=== PATIENT | female | born 1955 | race Caucasian/White ===

== ENCOUNTER → 2022-05-22 | Outpatient (CLI) | payer MEDICARE ==
--- NOTE | 2022-05-23 08:40 | MM ---
Reason for Exam: Screening (asymptomatic). Last screening mammogram was performed 12 month(s) ago. Patient History: Menarche at age 13. First Full-Term at age 38. Late child-bearing (after 30). Postmenopausal. Patient has history of breast feeding. Maternal aunt had breast cancer at or over age 50. Sister had breast cancer at or over age 50. Risk Values: Mahnaz 5 year model risk: 3.4%. NCI Lifetime model risk: 11.8%. Prior Study Comparison: 05/18/2020 Bilateral Screening Mammogram, [facility]. 05/19/2021 Bilateral Screening Mammogram, [facility]. Tissue Density: The breast tissue is heterogeneously dense. This may lower the sensitivity of mammography. Findings: Analyzed By CAD. Increasing indeterminate calcifications upper outer left breast. Magnification spot compression views recommended. No evidence for disc and mass within either breast at this time. Overall Assessment: Incomplete: need additional imaging evaluation, BI-RAD 0 Management: Diagnostic Mammogram of the left breast. A clinical breast exam by your physician is recommended on an annual basis and results should be correlated with mammographic findings. Electronically signed and approved by: Tariq Crespo M.D. Radiologis
== END | disposition home or self-care (01) ==
LOC: RADMAMWWP 10:00
PROVIDERS: ATTEND Internal Medicine
DX: Z12.31 Encounter for screening mammogram for malignant neoplasm of breast (principal); Z78.0 Asymptomatic menopausal state; Z80.3 Family history of malignant neoplasm of breast
CPT/HCPCS: 77063; 77067

== ENCOUNTER → 2022-05-25 | Outpatient (CLI) | payer MEDICARE ==
--- NOTE | 2022-05-25 08:14 | MM ---
Reason for Exam: Clinical finding. Last screening mammogram was performed less than 1 month ago. Patient History: Menarche at age 13. First Full-Term at age 38. Late child-bearing (after 30). Postmenopausal. Patient has history of breast feeding. Maternal aunt had breast cancer at or over age 50. Sister had breast cancer at or over age 50. Risk Values: Mahnaz 5 year model risk: 3.4%. NCI Lifetime model risk: 11.8%. Prior Study Comparison: 05/18/2020 Bilateral Screening Mammogram, [facility]. 05/19/2021 Bilateral Screening Mammogram, [facility]. 05/22/2022 Bilateral MG 3D screening mammo w/cad, [facility]. Tissue Density: Left: The breast tissue is heterogeneously dense. This may lower the sensitivity of mammography. Findings: Analyzed By CAD. A large area of amorphous calcifications spans 5 to 6 cm in the upper outer quadrant of the left breast. These appear to have increased from 2020. 2 site biopsy of far anterior and far posterior calcifications from a lateral approach is recommended. Overall Assessment: Suspicious, BI-RAD 4 Management: Stereotactic Core Biopsy of the left breast. 2 site biopsy far posterior and far anterior calcifications. Consider a lateral approach. Results were given to the patient verbally at the time of exam. Electronically signed and approved by: Fito Knutson M.D. Radiologist
== END | disposition home or self-care (01) ==
LOC: RADMAMWWP 07:38
PROVIDERS: ATTEND Internal Medicine
DX: R92.8 Other abnormal and inconclusive findings on diagnostic imaging of breast (principal); Z78.0 Asymptomatic menopausal state; Z80.3 Family history of malignant neoplasm of breast
CPT/HCPCS: 77065; G0279; 77061

== ENCOUNTER → 2022-06-05 | Day surgery (SDC) | payer MEDICARE, OTHER ==
[2022-06-05 07:45] VITALS: RESP 16
[2022-06-05 09:20] VITALS: BP 117/78; PULSE 71; TEMP 98.1
--- NOTE | 2022-06-08 14:26 | MM ---
Risk Values: Mahnaz 5 year model risk: 3.4%. NCI Lifetime model risk: 11.8%. Prior Study Comparison: 05/19/2021 Bilateral Screening Mammogram, [facility]. 05/22/2022 Bilateral MG 3D screening mammo w/cad, [facility]. 05/25/2022 Left MG 3D work up w/cad , [facility]. Pathology Description: Location: upper outer quadrant, middle. Marker Left Behind. Specimen Radiograph. Calcium Found: Yes Approach: CC FA Needle Type: Eviva Cores: 7 Skin Nicks: 1 Gauge: 9 The calcifications in question within the left breast were targeted by the undersigned at 2 sites. Procedure was performed by the undersigned. Informed consent was obtained and all of the patients questions were answered. The standard sterile technique was utilized and appropriate local anesthesia was obtained with 1% lidocaine. Mammotome probe was advanced and multiple core samples were obtained and sent to pathology for interpretation at both sites. Microclip marker was deployed at both sites of biopsy. Post procedural mammogram demonstrates appropriate deployment of radiopaque clip markers. The patient tolerated the procedure well and left the department in stable condition. Pathology results are pending. Impression: Successful two site core biopsy of the left breast with pathology results pending. Pathology Results: Result: Benign, Fibrocystic change. A. LEFT BREAST, SITE A, STEREOTACTIC NEEDLE CORE BIOPSY: Fibrocystic changes including sclerosing adenosis with calcifications. B. LEFT BREAST, SITE B, STEREOTACTIC NEEDLE CORE BIOPSY: Fibrocystic changes including sclerosing adenosis with calcifications. Pathology Description: Location: upper outer quadrant, posterior. Marker Left Behind. Specimen Radiograph. Calcium Found: Yes Approach: CC FA Needle Type: Eviva Cores: 8 Skin Nicks: 1 Gauge: 9 Overall Assessment: Benign Management: Diagnostic Mammogram of the left breast in 6 months. Electronically signed and approved by: Tariq Crespo M.D. Radiologis
== END ==
LOC: RADMAMWWP 07:29
PROVIDERS: ATTEND Internal Medicine
DX: N60.12 Diffuse cystic mastopathy of left breast (principal); N60.22 Fibroadenosis of left breast; R92.8 Other abnormal and inconclusive findings on diagnostic imaging of breast
CPT/HCPCS: 88305; 19081; 19082; A4648; J2001

== ENCOUNTER → 2022-06-22 | Outpatient (CLI) | payer MEDICARE, OTHER ==
[2022-06-22 16:08] VITALS: BP 107/74; PULSE 65; RESP 17; TEMP 97.1
--- NOTE | 2022-06-22 17:10 | P.GSHP ---
History of Present Illness H&P Date: 06/22/22 Chief Complaint: fibrocysitc breast changes Renetta is a 66 year old white female seen in consultation for Dr. Song regarding stero-tactic breast biopsy of the left breast on 06-05-22. She had a bilateral mammogram on 05-22-22 which led to a left breast diagnostic mammogram on 05-25-22, and a stero biopsy on 06-05-22 of two sites. The pathology was benign concordant of both sites. The patient did not feel anything of concern in her breast. States she did develop some ecchymosis following the procedure. She is not complaining of any trauma or infection in the breast. She had a right breast biopsy in the past, a benign tumr was removed many years ago. She also had a right stereo about 10 years ago which led to an open biopsy which was benign. It was dysplastic. She recently had a basal cell cancer removed from her left side of her nose. Caffiene: 8 cups/day nicotine: stopped at 23 chocolate: rare BCP: 6 years Family History: sister: breast cancer 2 brothers: melanoma maternal aunt: breast cancer Hormonal history: Menarche: 13 , breat fed: yes, age at : 38 menopause: 55 hormones: premarin cream 5 years, stoppped 6 years ago Surgical history: appy right breast biopsy LEEP procedure on cervix Medical History: hypothyroid Social History: nicotine: as above alcohol: weekly drugs: none - Constitutional Constitutional: Denies chills, Denies fever - EENT Eyes: denies blurred vision, denies pain Ears: deny: decreased hearing, tinnitus Ears, nose, mouth and throat: Denies headache, Denies sore throat - Breasts Breasts: bilateral: as per HPI - Cardiovascular Cardiovascular: Denies chest pain, Denies shortness of breath - Respiratory Respiratory: Denies cough, Denies 7 - Gastrointestinal Gastrointestinal: Denies abdominal pain, Denies diarrhea, Denies nausea, Denies vomiting - Genitourinary (Female) Genitourinary: Denies dysuria, Denies hematuria - Menstruation Menstruation: Reports postmenopausal - Musculoskeletal Musculoskeletal: Denies myalgias - Integumentary Integumentary: Denies pruritus, Denies rash - Neurological Neurological: Denies numbness, Denies weakness - Psychiatric Psychiatric: Denies anxiety, Denies depression - Endocrine Endocrine: Denies fatigue, Denies weight change - Hematologic/Lymphatic Comment: none - Allergic/Immunologic Allergic/Immunologic: Reports as per HPI Past Medical History Past Medical History: Thyroid Disorder Additional Past Medical History / Comment(s): HYPOTHYROID 2020. History of osteopenia. 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 She was treated for cervical dysplasia with a LEEP procedure 2002. History of Any Multi-Drug Resistant Organisms: None Reported Past Surgical History: Ablation, Appendectomy, Breast Surgery Additional Past Surgical History / Comment(s): LEEP procedure of the cervix 2002. Breast lump removed which was benign. Colonoscopy 2019(next after 10yr). Past Anesthesia/Blood Transfusion Reactions: Motion Sickness, Postoperative Nausea & Vomiting (PONV) Past Psychological History: No Psychological Hx Reported Smoking Status: Former smoker Past Alcohol Use History: Occasional Additional Past Alcohol Use History / Comment(s): Quit smoking at age 23. Past Drug Use History: None Reported - Past Family History Father Family Medical History: CVA/TIA Additional Family Medical History / Comment(s): . Mother Family Medical History: No Reported History Sister(s) Additional Family Medical History / Comment(s): Some form of breast dysplasia. Brother(s) Family Medical History: Cancer Additional Family Medical History / Comment(s): Melanoma Medications and Allergies Home Medications Medication Instructions Recorded Confirmed Type Cyanocobalamin (Vitamin B-12) 1,000 mcg PO DAILY 04/25/22 06/22/22 History [Vitamin B-12] Folic Acid 800 mcg PO DAILY 04/25/22 06/22/22 History Levothyroxine Sodium 25 mcg PO DAILY 04/25/22 06/22/22 History Calcium Carbonate/Vitamin D3 1 tab PO DAILY 05/25/22 06/22/22 History [Calcium 500 mg Chewable Tablet] Cholecalciferol (Vitamin D3) 125 mcg PO DAILY 05/25/22 06/22/22 History [Vitamin D3 (125 MCG = 5,000 IU)] Allergies Allergy/AdvReac Type Severity Reaction Status Date / Time acetaminophen [From [place]] AdvReac Nausea & Unverified 06/22/22 16:07 Vomiting hydrocodone [From [place]] AdvReac Nausea & Unverified 06/22/22 16:07 Vomiting Surgical - Exam Vital Signs Temp Pulse Resp BP Pulse Ox 97.1 F L 65 17 107/74 98 06/22/22 16:07 06/22/22 16:07 06/22/22 16:07 06/22/22 16:07 06/22/22 16:07 - General no distress - Eyes normal ocular movement - ENT no hearing loss - Neck trachea midline - Respiratory normal respiratory effort - Cardiovascular Rhythm: regular Heart Sounds: normal: S1, S2 - Abdomen Abdomen: soft, non tender, no guarding, no rigid, no rebound - Integumentary normal turgor - Neurologic no disoriented, no combative - Musculoskeletal normal gait, normal posture - Psychiatric oriented to time, oriented to person, oriented to place, speech is normal, memory intact Breast Exam: BRA: 34A inspection: Ecchymosis left breast related to recent stereo biopsy, bilateral grade 2 ptosis Palpation: Right breast: Multiple positional exam fibrocystic changes no dominant masses or nodules of concern Right axilla shoddy adenopathy non-worrisome Left breast: Multi-positional exam no dominant masses or notches of concern, ecchymosis related to recent stereo biopsy Left axilla: No adenopathy of concern Results Mammogram and pathology results reviewed Assessment and Plan Assessment: Impression: Fibrocystic breast changes Stereotactic core biopsy left breast benign concordant Plan: Repeat left breast mammogram in 6 months with a physician exam at that time CC: Dr. Song
== END ==
LOC: WWCWWP 15:36
PROVIDERS: ATTEND Surgery
DX: N60.12 Diffuse cystic mastopathy of left breast (principal); E03.9 Hypothyroidism, unspecified; M85.80 Other specified disorders of bone density and structure, unspecified site; Z80.3 Family history of malignant neoplasm of breast; Z85.828 Personal history of other malignant neoplasm of skin; Z87.891 Personal history of nicotine dependence; Z88.5 Allergy status to narcotic agent; Z90.49 Acquired absence of other specified parts of digestive tract

== ENCOUNTER → 2022-12-07 | Outpatient (CLI) | payer MEDICARE, OTHER | LOC: WWCWWP 09:38 | PROVIDERS: ATTEND Surgery | DX: Z53.9 Procedure and treatment not carried out, unspecified reason (principal) ==

== ENCOUNTER → 2022-12-27 | Outpatient (CLI) | payer MEDICARE, OTHER ==
--- NOTE | 2022-12-27 09:23 | MM ---
Reason for Exam: Follow-up at short interval from prior study. Last screening mammogram was performed 7 month(s) ago. Patient History: Menarche at age 13. First Full-Term at age 38. Late child-bearing (after 30). Postmenopausal. Patient has history of breast feeding. 06/05/2022, Benign MG stereo VAD BX LT on the left side. 06/05/2022, MG stereo VAD BX LT on the Left side. Maternal aunt had breast cancer, age 60. Sister had breast cancer, age 55. Risk Values: Jackelyn 5 year model risk: 5.1%. NCI Lifetime model risk: 16.6%. Prior Study Comparison: 05/19/2021 Bilateral Screening Mammogram, [facility]. 05/22/2022 Bilateral MG 3D screening mammo w/cad, [facility]. 05/25/2022 Left MG 3D work up w/cad LT, [facility]. Tissue Density: Left: The breast tissue is heterogeneously dense. This may lower the sensitivity of mammography. Findings: Analyzed By CAD. Total 3 microclips in the upper outer quadrant of the left breast, 2 from recent biopsies. Some residual calcifications remain in the upper outer quadrant. No significant change from prior exams. Overall Assessment: Benign, BI-RAD 2 Management: Screening Mammogram of both breasts in 6 months. SEE NOTE BELOW IN REGARDS TO PATIENT'S INCREASED 5 YEAR JACKELYN SCORE. Results were given to the patient verbally at the time of exam. Patient should continue monthly self-breast exams. A clinical breast exam by your physician is recommended on an annual basis. This exam should not preclude additional follow-up of suspicious palpable abnormalities. Note on Jackelyn scores and lifetime risk: 1. A Jackelyn score greater than 3% is considered moderate risk. If this is the case, consider specialist referral to assess eligibility for a risk reducing agent. 2. If overall lifetime risk for the development of breast cancer is 20% or higher, the patient may qualify for future screening with alternating mammogram and breast MRI. Electronically signed and approved by: Fito Knutson M.D. Radiologist
== END | disposition home or self-care (01) ==
LOC: RADMAMWWP 08:57
PROVIDERS: ATTEND Surgery
DX: R92.332 Mammographic heterogeneous density, left breast (principal); Z78.0 Asymptomatic menopausal state; Z80.3 Family history of malignant neoplasm of breast
CPT/HCPCS: 77065; G0279; 77061

== ENCOUNTER → 2023-01-04 | Outpatient (CLI) | payer MEDICARE, OTHER ==
[2023-01-04 09:10] VITALS: BP 112/76; PULSE 76; RESP 17; TEMP 98.2
--- NOTE | 2023-01-04 09:38 | P.PN ---
Subjective Progress Note Date: 01/04/23 fibrocysitc breast changes Renetta is a 67 year old white female seen in consultation for Dr. Nohemi cool stero-tactic breast biopsy of the left breast on 06-05-22. She had a bilateral mammogram on 05-22-22 which led to a left breast diagnostic mammogram on 05-25-22, and a stero biopsy on 06-05-22 of two sites. The pathology was benign concordant of both sites. Pathology at each site revealed fibrocystic changes including sclerosing adenosis with calcifications. The patient did not feel anything of concern in her breast. States she did develop some ecchymosis following the procedure. She is not complaining of any trauma or infection in the breast. She had a right breast biopsy in the past, a benign tumr was removed many years ago. She also had a right stereo about 10 years ago which led to an open biopsy which was benign. It was dysplastic. She had a left breast mammogram and [address]40 which was benign thyroid 2. She will be due for bilateral mammogram in 6 months. She does not feel any new lumps masses or nodules of concern in either breast. She recently had a basal cell cancer removed from her left side of her nose. Mahnaz Risk: 5 year: 5.1% lifetime risk: 16.6 % We have discussed chemoprophylaxis and she is going to meet with medical oncology. Caffiene: 8 cups/day nicotine: stopped at 23 chocolate: rare BCP: 6 years Family History: sister: breast cancer 2 brothers: melanoma maternal aunt: breast cancer Hormonal history: Menarche: 13 , breat fed: yes, age at : 38 menopause: 55 hormones: premarin cream 5 years, stoppped 6 years ago Surgical history: appy right breast biopsy LEEP procedure on cervix Medical History: hypothyroid Social History: nicotine: as above alcohol: weekly drugs: none - Constitutional Constitutional: Denies chills, Denies fever - EENT Eyes: denies blurred vision, denies pain Ears: deny: decreased hearing, tinnitus Ears, nose, mouth and throat: Denies headache, Denies sore throat - Breasts Breasts: bilateral: as per HPI - Cardiovascular Cardiovascular: Denies chest pain, Denies shortness of breath - Respiratory Respiratory: Denies cough - Gastrointestinal Gastrointestinal: Denies abdominal pain, Denies diarrhea, Denies nausea, Denies vomiting - Genitourinary (Female) Genitourinary: Denies dysuria, Denies hematuria - Menstruation Menstruation: Reports postmenopausal - Musculoskeletal Musculoskeletal: Denies myalgias - Integumentary Integumentary: Denies pruritus, Denies rash - Neurological Neurological: Denies numbness, Denies weakness - Psychiatric Psychiatric: Denies anxiety, Denies depression - Endocrine Endocrine: Denies fatigue, Denies weight change - Hematologic/Lymphatic Comment: none - Allergic/Immunologic Allergic/Immunologic: Reports as per HPI Past Medical History Past Medical History: Thyroid Disorder Additional Past Medical History / Comment(s): HYPOTHYROID 2020. History of osteopenia. 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 She was treated for cervical dysplasia with a LEEP procedure 2002. History of Any Multi-Drug Resistant Organisms: None Reported Past Surgical History: Ablation, Appendectomy, Breast Surgery Additional Past Surgical History / Comment(s): LEEP procedure of the cervix 2002. Breast lump removed which was benign. Colonoscopy 2019(next after 10yr). Past Anesthesia/Blood Transfusion Reactions: Motion Sickness, Postoperative Nausea & Vomiting (PONV) Past Psychological History: No Psychological Hx Reported Smoking Status: Former smoker Past Alcohol Use History: Occasional Additional Past Alcohol Use History / Comment(s): Quit smoking at age 23. Past Drug Use History: None Reported - Past Family History Father Family Medical History: CVA/TIA Additional Family Medical History / Comment(s): . Mother Family Medical History: No Reported History Sister(s) Additional Family Medical History / Comment(s): Some form of breast dysplasia. Brother(s) Family Medical History: Cancer Additional Family Medical History / Comment(s): Melanoma Medications and Allergies Home Medications Medication Instructions Recorded Confirmed Type Cyanocobalamin (Vitamin B-12) 1,000 mcg PO DAILY 04/25/22 06/22/22 History [Vitamin B-12] Folic Acid 800 mcg PO DAILY 04/25/22 06/22/22 History Levothyroxine Sodium 25 mcg PO DAILY 04/25/22 06/22/22 History Calcium Carbonate/Vitamin D3 1 tab PO DAILY 05/25/22 06/22/22 History [Calcium 500 mg Chewable Tablet] Cholecalciferol (Vitamin D3) 125 mcg PO DAILY 05/25/22 06/22/22 History [Vitamin D3 (125 MCG = 5,000 IU)] Allergies Allergy/AdvReac Type Severity Reaction Status Date / Time acetaminophen [From [place]] AdvReac Nausea & Unverified 06/22/22 16:07 Vomiting hydrocodone [From [place]] AdvReac Nausea & Unverified 06/22/22 16:07 Vomiting Objective - Vital Signs Vital signs: Vital Signs Temp 98.2 F 01/04/23 09:08 Pulse 76 01/04/23 09:08 Resp 17 01/04/23 09:08 BP 112/76 01/04/23 09:08 Pulse Ox 97 01/04/23 09:08 FiO2 Intake & Output 01/03/23 01/04/23 01/04/23 18:59 06:59 18:59 Weight 50.802 kg - Constitutional General appearance: Present: cooperative - EENT Eyes: Present: EOMI ENT: Present: hearing grossly normal - Neck Neck: Present: normal ROM - Respiratory Respiratory: bilateral: CTA - Cardiovascular Rhythm: regular Heart sounds: normal: S1, S2 - Integumentary Integumentary: Present: normal turgor - Musculoskeletal Musculoskeletal: Present: gait normal - Psychiatric Psychiatric: Present: A&O x's 3, appropriate affect, intact judgment & insight - Additional findings Additional findings: Breast Exam: BRA: 34A inspection: bilateral grade 2 ptosis Palpation: Right breast: Multiple positional exam fibrocystic changes no dominant masses or nodules of concern Right axilla shoddy adenopathy non-worrisome Left breast: Multi-positional exam no dominant masses or notches of concern, ecchymosis related to recent stereo biopsy Left axilla: No adenopathy of concern Assessment and Plan Assessment: Impression: Fibrocystic breast changes Stereotactic core biopsy left breast benign concordant 06-05-22 Plan: Repeat bilateral mammogram in May 2023 with appointment; Abdomen with medical oncology to discuss chemoprophylaxis Patient to follow up sooner if any questions or concerns CC: Dr. Song
== END ==
LOC: WWCWWP 09:01
PROVIDERS: ATTEND Surgery
DX: R92.8 Other abnormal and inconclusive findings on diagnostic imaging of breast (principal); N60.12 Diffuse cystic mastopathy of left breast; E03.9 Hypothyroidism, unspecified; M85.80 Other specified disorders of bone density and structure, unspecified site; Z79.890 Hormone replacement therapy; Z80.3 Family history of malignant neoplasm of breast; Z85.828 Personal history of other malignant neoplasm of skin; Z87.891 Personal history of nicotine dependence; Z88.5 Allergy status to narcotic agent; Z88.1 Allergy status to other antibiotic agents

== ENCOUNTER → 2023-05-08 | Outpatient (CLI) | payer MEDICARE, OTHER ==
[2023-05-08 09:36] VITALS: BP 126/81; PULSE 61; RESP 17; TEMP 98
--- NOTE | 2023-05-08 09:57 | P.HPOB ---
History of Present Illness H&P Date: 05/08/23 Chief Complaint: The patient is here for her routine gynecologic exam. This is a 67-year-old with an LMP of 2010. The patient is without gynecologic complaints and denies any postmenopausal bleeding. Review of Systems The patient's weight has been stable over the last year. She denies respiratory, cardiac, or G.I. problems. Past Medical History Past Medical History: Thyroid Disorder Additional Past Medical History / Comment(s): HYPOTHYROID 2020. History of osteopenia. 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 She was treated for cervical dysplasia with a LEEP procedure 2002. History of Any Multi-Drug Resistant Organisms: None Reported Past Surgical History: Ablation, Appendectomy, Breast Surgery Additional Past Surgical History / Comment(s): LEEP procedure of the cervix 2002. Breast lump removed which was benign. Left breast biopsy 2022. Colonoscopy 2019(next after 5 yr). Past Anesthesia/Blood Transfusion Reactions: Motion Sickness, Postoperative Nausea & Vomiting (PONV) Past Psychological History: No Psychological Hx Reported Smoking Status: Former smoker Past Alcohol Use History: Occasional (About 4 drinks per week.) Additional Past Alcohol Use History / Comment(s): Quit smoking at age 23. Past Drug Use History: None Reported Additional History: She has been a since 2014 and denies sexual activity since then. 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 - Past Family History Father Family Medical History: CVA/TIA Additional Family Medical History / Comment(s): . Mother Family Medical History: No Reported History Sister(s) Additional Family Medical History / Comment(s): Some form of breast dysplasia. Brother(s) Family Medical History: Cancer Additional Family Medical History / Comment(s): Melanoma Medications and Allergies Home Medications Medication Instructions Recorded Confirmed Type Cyanocobalamin (Vitamin B-12) 1,000 mcg PO DAILY 04/25/22 05/08/23 History [Vitamin B-12] Folic Acid 800 mcg PO DAILY 04/25/22 05/08/23 History Calcium Carbonate/Vitamin D3 1 tab PO DAILY 05/25/22 05/08/23 History [Calcium 500 mg Chewable Tablet] Cholecalciferol (Vitamin D3) 125 mcg PO DAILY 04/06/23 03/19/24 History [Vitamin D3 (125 MCG = 5,000 IU)] Allergies Allergy/AdvReac Type Severity Reaction Status Date / Time acetaminophen [From [place]] AdvReac Nausea & Unverified 05/08/23 09:17 Vomiting hydrocodone [From [place]] AdvReac Nausea & Unverified 05/08/23 09:17 Vomiting Exam Vital Signs Temp Pulse Resp BP Pulse Ox 05/08/23 09:20 98 F 61 17 126/81 99 Intake and Output 05/07/23 05/08/23 05/08/23 22:59 06:59 14:59 Other: Weight 53.524 kg Height 5 foot 1 inch, weight 118 pounds, BMI 22.3. This is a well-developed well-nourished white female who is alert and oriented times 3 in no acute distress. HEENT: Within normal limits. NECK: Supple without mass or thyromegaly. CHEST AND LUNGS: Clear to auscultation. HEART: Regular rate and rhythm. BREASTS: Are without mass or discharge. AXILLARY EXAM: Negative for adenopathy. BACK: Negative for CVA tenderness. ABDOMEN: Soft, nontender, without palpable masses. PELVIC EXAM: Normal external genitalia with mild to moderate atrophy. Vagina appears normal with mild to moderate atrophy. The cervix is consistent with her previous LEEP procedure without lesions. There is no unusual discharge. There is no evidence of prolapse. The uterus is midposition, nongravid size and nontender. There are no palpable adnexal masses or tenderness. RECTAL EXAM: Rectovaginal exam is negative for mass or tenderness and is negative for occult blood. EXTREMITIES: Nontender. IMPRESSION: 1. 67-year-old menopausal female status post LEEP procedure in 2002, with normal gynecologic exam. 2. History of osteopenia. PLAN: 1. Pap smear was deferred since she had a negative Pap smear cotest on 04/25/2022. We will plan on repeating the Pap smear cotest in approximately 3-4 years and if that is negative, we will then discontinuing Pap smears. 2. Self breast awareness was discussed with the patient. We have also discussed symptoms associated with inflammatory breast cancer. 3. Mammogram will be due in June 2023 and she states she has an order slip for this from Dr. Madan Golden. 4. Osteoporosis prevention was discussed. I have stressed the importance of adequate calcium, vitamin D and regular exercise. Recommended amounts of calcium and vitamin D were also discussed. She is scheduled for a bone density test at the same time of her mammogram in June 2023. 5. She was advised to return in one year for her annual well woman exam. If her mammogram in June is benign, she will plan on returning for her well woman exam about 1 year after the mammogram so we can do both at the same time.
== END ==
LOC: WWCWWP 09:13
PROVIDERS: ATTEND Obstetrics & Gynecology
DX: M85.80 Other specified disorders of bone density and structure, unspecified site (principal); Z78.0 Asymptomatic menopausal state; Z87.891 Personal history of nicotine dependence; Z88.5 Allergy status to narcotic agent; Z88.6 Allergy status to analgesic agent

== ENCOUNTER → 2023-06-25 | Outpatient (CLI) | payer MEDICARE, OTHER ==
--- NOTE | 2023-06-25 11:56 | BD ---
EXAMINATION TYPE: Axial Bone Density DATE OF EXAM: 06/25/2023 CLINICAL HISTORY: 67 years old Female. ICD-10 CODE: M85.9 DISORDER OF BONE DENSITY AND STRUCTURE, UN SP Height: 62 Weight: 116.1 FRAX RISK QUESTIONS: Alcohol (3 or more units per day): no Family History (Parent hip fracture): no Glucocorticoids (More than 3mos): no (Ex: prednisone, prednisolone, methylprednisolone, dexamethasone, and hydrocortisone). History of Fracture in Adulthood: no Secondary Osteoporosis: 1. Type 1 Diabetes: no 2. Hyperthyroidism: no 3. Menopause before 45: no 4. Malnutrition: no 5. Chronic liver disease: no Rheumatoid Arthritis: no Current Tobacco Use: no RISK FACTORS HISTORY OF: Surgery to Spine/Hip(right/left)/Wrist (right/left): no EXAM MEASUREMENTS: Bone mineral densitometry was performed using the [employer] System. Bone mineral density as measured about the Lumbar spine is: ----- L1-L4(G/cm2): 1.308 T Score Values are as follows: ----- L1: -0.4 ----- L2: 2.3 ----- L3: 2.9 ----- L4: -0.1 ----- L1-L4: 1.1 Z Score Values are as follows: ----- L1: 1.7 ----- L2: 4.4 ----- L3: 4.9 ----- L4: 2.0 ----- L1-L4: 3.1 Bone mineral density baseline Bone mineral density about the R hip (g/cm2): 0.872 Bone mineral density about the L hip (g/cm2): 0.830 T Score values are as follows: -----R Neck: -1.4 -----L Neck: -1.8 -----R Total: -1.1 -----L Total: -1.4 Z Score values are as follows: -----R Neck: 0.1 -----L Neck: 0.5 -----R Total: 0.6 -----L Total: 0.2 Bone mineral density : baseline FRAX%s: The graph provided illustrates a 9.5% chance for a major osteoporotic fx and a 1.5% chance fo r the hips probability for fx in 10 years time. IMPRESSION: Osteopenia (T Score between -2.5 and -1). There is slightly increased risk of fracture and the patient may be considered for treatment. Re-Screen 2-5 years. NOTE: T-SCORE=SD OF THE YOUNG ADULT MEAN.
== END | disposition home or self-care (01) ==
LOC: RADBDWWP 08:20
PROVIDERS: ATTEND Family Medicine
DX: M85.89 Other specified disorders of bone density and structure, multiple sites (principal)
CPT/HCPCS: 77080

== ENCOUNTER → 2023-06-25 | Outpatient (CLI) | payer MEDICARE, OTHER ==
--- NOTE | 2023-06-26 18:49 | MM ---
Reason for Exam: Screening (asymptomatic). Last mammogram was performed 1 year(s) and 1 month(s) ago. Patient History: Menarche at age 13. First Full-Term at age 38. Late child-bearing (after 30). Postmenopausal. Patient has history of breast feeding. 06/05/2022, Benign MG stereo VAD BX LT on the left side. 06/05/2022, MG stereo VAD BX LT on the Left side. Maternal aunt had breast cancer, age 60. Sister had breast cancer, age 55. Risk Values: Mahnaz 5 year model risk: 5.1%. NCI Lifetime model risk: 16.6%. Prior Study Comparison: 05/22/2022 Bilateral MG 3D screening mammo w/cad, [facility]. 05/25/2022 Left MG 3D work up w/cad LT, [facility]. 12/27/2022 Left MG 3D diag mammo w/cad LT, [facility]. Tissue Density: The breasts are heterogeneously dense, which may obscure small masses. Findings: Analyzed By CAD. 2 metallic clips in the left breast from prior biopsies. Some residual regional upper outer quadrant calcifications are redemonstrated just adjacent. There is no suspicious group of microcalcifications or new suspicious mass in either breast. Overall Assessment: Benign, BI-RAD 2 Management: Screening Mammogram of both breasts in 1 year. See note below in regards to patient's increased 5 year Mahnaz score. Patient should continue monthly self-breast exams. A clinical breast exam by your physician is recommended on an annual basis. This exam should not preclude additional follow-up of suspicious palpable abnormalities. Note on Mahnaz scores and lifetime risk: 1. A Mahnaz score greater than 3% is considered moderate risk. If this is the case, consider specialist referral to assess eligibility for a risk reducing agent. 2. If overall lifetime risk for the development of breast cancer is 20% or higher, the patient may qualify for future screening with alternating mammogram and breast MRI. Electronically signed and approved by: Fito Knutson M.D. Radiologist
== END | disposition home or self-care (01) ==
LOC: RADMAMWWP 08:19
PROVIDERS: ATTEND Surgery
DX: Z12.31 Encounter for screening mammogram for malignant neoplasm of breast (principal); Z78.0 Asymptomatic menopausal state; Z80.3 Family history of malignant neoplasm of breast
CPT/HCPCS: 77063; 77067

== ENCOUNTER → 2023-06-28 | Outpatient (CLI) | payer MEDICARE, OTHER ==
--- NOTE | 2023-06-28 09:49 | P.PN ---
Subjective Progress Note Date: 06/28/23 Principal diagnosis: fibrocystic breast fibrocysitc breast changes Renetta is a 67 year old white female seen in consultation for Dr. Song on 06-22-22 regarding a stero-tactic breast biopsy of the left breast on 06-05-22. She had a bilateral mammogram on 05-22-22 which led to a left breast diagnostic mammogram on 05-25-22, and a stero biopsy on 06-05-22 of two sites. The pathology was benign concordant of both sites. The patient did not feel anything of concern in her breast. States she did develop some ecchymosis following the procedure. She is not complaining of any trauma or infection in the breast. She had a right breast biopsy in the past, a benign tumor was removed many years ago. She also had a right stereo about 10 years ago which led to an open biopsy which was benign. It was dysplastic. She had a bilateral mammogram on 06-25-23 which was BIRAD 2. She is not complaining of any new lumps masses or nodules of concern in either breast. She recently had a basal cell cancer removed from her left side of her nose. Steven Risk: 5.1% lifetime risk: 16.6% She has seen a medical oncologist regarding her steven risk and declined chemoprophyaxis. She has had genetic testing and she was told all (-). Caffiene: 8 cups/day nicotine: stopped at 23 chocolate: rare BCP: 6 years Family History: sister: breast cancer 2 brothers: melanoma maternal aunt: breast cancer Hormonal history: Menarche: 13 , breat fed: yes, age at : 38 menopause: 55 hormones: premarin cream 5 years, stoppped 6 years ago Surgical history: appy right breast biopsy LEEP procedure on cervix Medical History: hypothyroid Social History: nicotine: as above alcohol: weekly drugs: none - Constitutional Constitutional: Denies chills, Denies fever - EENT Eyes: denies blurred vision, denies pain Ears: deny: decreased hearing, tinnitus Ears, nose, mouth and throat: Denies headache, Denies sore throat - Breasts Breasts: bilateral: as per HPI - Cardiovascular Cardiovascular: Denies chest pain, Denies shortness of breath - Respiratory Respiratory: Denies cough - Gastrointestinal Gastrointestinal: Denies abdominal pain, Denies diarrhea, Denies nausea, Denies vomiting - Genitourinary (Female) Genitourinary: Denies dysuria, Denies hematuria - Menstruation Menstruation: Reports postmenopausal - Musculoskeletal Musculoskeletal: Denies myalgias - Integumentary Integumentary: Denies pruritus, Denies rash - Neurological Neurological: Denies numbness, Denies weakness - Psychiatric Psychiatric: Denies anxiety, Denies depression - Endocrine Endocrine: Denies fatigue, Denies weight change - Hematologic/Lymphatic Comment: none - Allergic/Immunologic Allergic/Immunologic: Reports as per HPI Past Medical History Past Medical History: Thyroid Disorder Additional Past Medical History / Comment(s): HYPOTHYROID 2020. History of osteopenia. Past K[employer] C[employer] history: HPV at age 20. She was treated for cervical dysplasia with a LEEP procedure 2002. History of Any Multi-Drug Resistant Organisms: None Reported Past Surgical History: Ablation, Appendectomy, Breast Surgery Additional Past Surgical History / Comment(s): LEEP procedure of the cervix 2002. Breast lump removed which was benign. Colonoscopy 2019(next after 10yr). Past Anesthesia/Blood Transfusion Reactions: Motion Sickness, Postoperative Nausea & Vomiting (PONV) Past Psychological History: No Psychological Hx Reported Smoking Status: Former smoker Past Alcohol Use History: Occasional Additional Past Alcohol Use History / Comment(s): Quit smoking at age 23. Past Drug Use History: None Reported - Past Family History Father Family Medical History: CVA/TIA Additional Family Medical History / Comment(s): . Mother Family Medical History: No Reported History Sister(s) Additional Family Medical History / Comment(s): Some form of breast dysplasia. Brother(s) Family Medical History: Cancer Additional Family Medical History / Comment(s): Melanoma Medications and Allergies Home Medications Medication Instructions Recorded Confirmed Type Cyanocobalamin (Vitamin B-12) 1,000 mcg PO DAILY 04/25/22 06/22/22 History [Vitamin B-12] Folic Acid 800 mcg PO DAILY 04/25/22 06/22/22 History Levothyroxine Sodium 25 mcg PO DAILY 04/25/22 06/22/22 History Calcium Carbonate/Vitamin D3 1 tab PO DAILY 05/25/22 06/22/22 History [Calcium 500 mg Chewable Tablet] Cholecalciferol (Vitamin D3) 125 mcg PO DAILY 05/25/22 06/22/22 History [Vitamin D3 (125 MCG = 5,000 IU)] Allergies Allergy/AdvReac Type Severity Reaction Status Date / Time acetaminophen [From [place]] AdvReac Nausea & Unverified 06/22/22 16:07 Vomiting hydrocodone [From [place]] AdvReac Nausea & Unverified 06/22/22 16:07 Vomiting Objective - Vital Signs Vital signs: Vital Signs Temp 98.1 F 06/28/23 09:13 Pulse 97 06/28/23 09:13 Resp 18 06/28/23 09:13 BP 106/72 06/28/23 09:13 Pulse Ox 100 06/28/23 09:13 FiO2 Intake & Output 06/27/23 06/28/23 06/28/23 18:59 06:59 18:59 Weight 49.895 kg - Constitutional General appearance: Present: cooperative - EENT Eyes: Present: EOMI ENT: Present: hearing grossly normal - Neck Neck: Present: normal ROM - Respiratory Respiratory: bilateral: CTA - Cardiovascular Rhythm: regular Heart sounds: normal: S1, S2 - Gastrointestinal General gastrointestinal: Present: soft - Integumentary Integumentary: Present: normal turgor - Musculoskeletal Musculoskeletal: Present: gait normal - Psychiatric Psychiatric: Present: A&O x's 3, appropriate affect, intact judgment & insight - Additional findings Additional findings: Breast Exam: BRA: 34A inspection: bilateral grade 2 ptosis Palpation: Right breast: Multiple positional exam fibrocystic changes no dominant masses or nodules of concern Right axilla shoddy adenopathy non-worrisome Left breast: Multi-positional exam no dominant masses or notches of concern, ecchymosis related to recent stereo biopsy Left axilla: No adenopathy of concern Assessment and Plan Assessment: Impression: Fibrocystic breast changes Stereotactic core biopsy left breast benign concordant 2022 Breast bilateral mammogram 06-25-2023 benign BI-RADS 2 Patient has seen medical oncologist for high Steven risk score and at this time declined chemoprophylaxis Plan: Bilateral mammogram 1 year with examination at that time Patient to follow-up sooner any questions or concerns CC: Kamila Meyer
[2023-06-28 09:53] VITALS: BP 106/72; PULSE 97; RESP 18; TEMP 98.1
== END ==
LOC: WWCWWP 08:40
PROVIDERS: ATTEND Surgery
DX: R92.8 Other abnormal and inconclusive findings on diagnostic imaging of breast (principal); N60.11 Diffuse cystic mastopathy of right breast; R58 Hemorrhage, not elsewhere classified; Z98.890 Other specified postprocedural states; Z85.828 Personal history of other malignant neoplasm of skin; Z80.3 Family history of malignant neoplasm of breast; Z87.891 Personal history of nicotine dependence; Z88.5 Allergy status to narcotic agent; Z88.6 Allergy status to analgesic agent

== ENCOUNTER → 2023-12-19 | Outpatient (CLI) | payer MEDICARE, OTHER ==
--- NOTE | 2023-12-19 08:48 | US ---
EXAMINATION TYPE: US abdomen complete DATE OF EXAM: 12/19/2023 COMPARISON: NONE CLINICAL INDICATION: Female, 68 years old with history of K80.50 CALCULUS; Hx appendectomy. Hepatic c olic w/o cholangitis w/o obstruction. TECHNIQUE: Grayscale and color Doppler imaging of the abdomen was performed. FINDINGS: EXAM MEASUREMENTS: Liver Length: 17.7 cm Gallbladder Wall: 0.17 cm CBD: 0.29 cm Spleen: 9.6 cm Right Kidney: 10.4 x 4.7 x 3.8 cm Left Kidney: 10.4 x 4.4 x 5.3 cm SOAKERS SUPERVISOR NOTES: Exam is limited due to gas. Pancreas: Limited due to gas. Liver: Measures upper limits. Appears coarse. Gallbladder: wnl Evidence for sonographic Kruger's sign: No CBD: Portions seen appear wnl Spleen: *Limited visibility due to gas. Right Kidney: No hydronephrosis or masses seen Left Kidney: No hydronephrosis or masses seen. Limited due to gas. Upper IVC: Appears wnl Abd Aorta: Slightly limited due to gas. No abnormalities seen. IMPRESSION: No evidence for acute process. [facility], , 12/19/2023 8:46 AM
== END | disposition home or self-care (01) ==
LOC: RADUSWWP 07:30
PROVIDERS: ATTEND Family Medicine
CPT/HCPCS: 76700

== ENCOUNTER → 2023-12-27 | Outpatient (CLI) | payer MEDICARE, OTHER ==
--- NOTE | 2023-12-27 09:45 | NM ---
EXAMINATION TYPE: NM hepatobiliary w CCK DATE OF EXAM: 12/27/2023 COMPARISON: NONE CLINICAL INDICATION: Female, 68 years old with history of K80.50 Calculus; TECHNIQUE: DOSAGE: The patient received 8 0z Ensure plus and 5.22 mCi of Technetium 99m Choletec. FINDINGS: There is normal hepatic extraction. The gallbladder is seen by 20 minutes. Ejection fract ion is 68%. IMPRESSION: 1. Normal hepatobiliary exam [facility], , 12/27/2023 9:43 AM
== END | disposition home or self-care (01) ==
LOC: RADNMMAIN 06:47
PROVIDERS: ATTEND Family Medicine
DX: K80.50 Calculus of bile duct without cholangitis or cholecystitis without obstruction (principal)
CPT/HCPCS: 78227; A9537; J2805

== ENCOUNTER → 2024-05-13 | Outpatient (CLI) | payer MEDICARE ==
[2024-05-13 14:11] VITALS: BP 110/68; PULSE 72; RESP 16; TEMP 97.7
--- NOTE | 2024-05-13 15:01 | P.HPOB ---
History of Present Illness H&P Date: 05/13/24 Chief Complaint: Patient is here for her routine gynecologic exam. This is a 68-year-old G1, P1 with an LMP of 2010. Patient is without gynecologic complaints and denies any postmenopausal bleeding. Review of Systems The patient's weight has been stable over the last year. She denies respiratory, cardiac, or G.I. problems. Past Medical History Past Medical History: Thyroid Disorder Additional Past Medical History / Comment(s): HYPOTHYROID 2020. History of osteopenia. 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 She was treated for cervical dysplasia with a LEEP procedure 2002. History of Any Multi-Drug Resistant Organisms: None Reported Past Surgical History: Ablation, Appendectomy, Breast Surgery Additional Past Surgical History / Comment(s): LEEP procedure of the cervix 2002. Breast lump removed which was benign. Left breast biopsy 2022. Colonoscopy 2019(next after 5 yr). Past Anesthesia/Blood Transfusion Reactions: Motion Sickness, Postoperative Nausea & Vomiting (PONV) Past Psychological History: No Psychological Hx Reported Smoking Status: Former smoker Past Alcohol Use History: Occasional (1 drink per week.) Additional Past Alcohol Use History / Comment(s): Quit smoking at age 23. Past Drug Use History: None Reported Additional History: She has been a since 2014 and has not been sexually active since then. 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 - Past Family History Father Family Medical History: CVA/TIA Additional Family Medical History / Comment(s): . Mother Family Medical History: No Reported History Sister(s) Additional Family Medical History / Comment(s): Some form of breast dysplasia. Brother(s) Family Medical History: Cancer Additional Family Medical History / Comment(s): Melanoma Medications and Allergies Home Medications Medication Instructions Recorded Confirmed Type Cyanocobalamin (Vitamin B-12) 1,000 mcg PO DAILY 04/25/22 05/13/24 History [Vitamin B-12] Folic Acid 800 mcg PO DAILY 04/25/22 05/13/24 History Calcium Carbonate/Vitamin D3 1 tab PO DAILY 05/25/22 05/13/24 History [Calcium 500 mg Chewable Tablet] Liothyronine Sodium [Cytomel] 5 mcg PO DAILY 05/13/24 05/13/24 History Allergies Allergy/AdvReac Type Severity Reaction Status Date / Time acetaminophen [From [place]] AdvReac Nausea & Unverified 05/13/24 13:59 Vomiting hydrocodone [From [place]] AdvReac Nausea & Unverified 05/13/24 13:59 Vomiting Exam Vital Signs Temp Pulse Resp BP Pulse Ox 05/13/24 14:08 97.7 F 72 16 110/68 100 Intake and Output 05/12/24 05/13/24 05/13/24 22:59 06:59 14:59 Other: Weight 53.524 kg Height 5 foot 1 inch, weight 118 pounds, BMI 22.3. This is a well-developed well-nourished white female who is alert and oriented times 3 in no acute distress. HEENT: Within normal limits. NECK: Supple without mass or thyromegaly. CHEST AND LUNGS: Clear to auscultation. HEART: Regular rate and rhythm. BREASTS: Are without mass or discharge. AXILLARY EXAM: Negative for adenopathy. BACK: Negative for CVA tenderness. ABDOMEN: Soft, nontender, without palpable masses. PELVIC EXAM: Normal external genitalia with moderate atrophy. Cervix and vagina appear normal with moderate atrophy. There is no unusual discharge. There is no evidence of prolapse. The uterus is midposition, nongravid size and nontender. There are no palpable adnexal masses or tenderness. RECTAL EXAM: Rectovaginal exam is negative for mass or tenderness and is negative for occult blood. EXTREMITIES: Nontender. IMPRESSION: 1. 68-year-old menopausal female with normal gynecologic exam. 2. History of osteopenia. 3. Previous LEEP procedure of the cervix in 2002. PLAN: 1. Pap smear was deferred since she had a negative Pap smear cotest on 04/25/2022. We will plan on repeating this in approximately 2027 if that is negative, we will plan on discontinuing Pap smears. 2. Self breast awareness was discussed with the patient. We have also discussed symptoms associated with inflammatory breast cancer. 3. Screening mammogram will be due in July. She states she has an order slip from Dr. Madan Golden for this. 4. Osteoporosis prevention was discussed. I have stressed the importance of adequate calcium, vitamin D and regular exercise. Recommended amounts of calcium and vitamin D were also discussed. We will plan on repeating the bone density test in approximately July of next year. 5. She was advised to return in one year for her annual well woman exam. She states she will probably do this in about July 2025 so she can do the mammogram and bone density test at the same time.
== END ==
LOC: WWCWWP 13:40
PROVIDERS: ATTEND Obstetrics & Gynecology
DX: Z01.419 Encounter for gynecological examination (general) (routine) without abnormal findings (principal); M85.80 Other specified disorders of bone density and structure, unspecified site; Z88.5 Allergy status to narcotic agent

== ENCOUNTER → 2024-07-28 | Outpatient (CLI) | payer MEDICARE ==
--- NOTE | 2024-07-28 12:11 | MM ---
Reason for Exam: Screening (asymptomatic). Last mammogram was performed 1 year(s) and 1 month(s) ago. Patient History: Menarche at age 13. First Full-Term at age 38. Late child-bearing (after 30). Postmenopausal. Patient has history of breast feeding. Patient used Hormonal Contraceptives for 10 years. 06/05/2022, Benign MG stereo VAD BX LT on the left side. 06/05/2022, MG stereo VAD BX LT on the Left side. Maternal aunt had breast cancer, age 60. Sister had breast cancer, age 55. Risk Values: Mahnaz 5 year model risk: 5.1%. NCI Lifetime model risk: 15.9%. Prior Study Comparison: 05/25/2022 Left MG 3D work up w/cad LT, [facility]. 12/27/2022 Left MG 3D diag mammo w/cad LT, [facility]. 06/25/2023 Bilateral MG 3D screening mammo w/cad, [facility]. Tissue Density: The breasts are heterogeneously dense, which may obscure small masses. Findings: Analyzed By CAD. There are 3 biopsy clips in the left breast redemonstrated. There is no suspicious new group of microcalcifications or new suspicious mass in either breast. Overall Assessment: Benign, BI-RAD 2 Management: Screening Mammogram of both breasts in 1 year. . Patient should continue monthly self-breast exams. A clinical breast exam by your physician is recommended on an annual basis. This exam should not preclude additional follow-up of suspicious palpable abnormalities. Note on Mahnaz scores and lifetime risk: 1. A Mahnaz score greater than 3% is considered moderate risk. If this is the case, consider specialist referral to assess eligibility for a risk reducing agent. 2. If overall lifetime risk for the development of breast cancer is 20% or higher, the patient may qualify for future screening with alternating mammogram and breast MRI. [facility], , 07/28/2024 8:06 AM. Electronically signed and approved by: Tin Womack M.D.
== END | disposition home or self-care (01) ==
LOC: RADMAMWWP 07:42
PROVIDERS: ATTEND Surgery
DX: Z12.31 Encounter for screening mammogram for malignant neoplasm of breast (principal); R92.333 Mammographic heterogeneous density, bilateral breasts; Z78.0 Asymptomatic menopausal state; Z80.3 Family history of malignant neoplasm of breast; Z92.0 Personal history of contraception
CPT/HCPCS: 77063; 77067

== ENCOUNTER → 2024-07-31 | Outpatient (CLI) | payer MEDICARE ==
[2024-07-31 09:15] VITALS: BP 95/65; PULSE 80; RESP 16; TEMP 97.6
--- NOTE | 2024-07-31 09:24 | P.PN ---
Subjective Progress Note Date: 07/31/24 Principal diagnosis: Fibrocystic breast changes 07-31-24 Principal diagnosis: fibrocysitc breast changes Renetta is a 68 year old white female seen in consultation for Dr. Song on 06-22-22 regarding a stero-tactic breast biopsy of the left breast on 06-05-22. She had a bilateral mammogram on 05-22-22 which led to a left breast diagnostic mammogram on 05-25-22, and a stero biopsy on 06-05-22 of two sites. The pathology was benign concordant of both sites. The patient did not feel anything of concern in her breast. States she did develop some ecchymosis following the procedure. She is not complaining of any trauma or infection in the breast. She had a right breast biopsy in the past, a benign tumor was removed many years ago. She also had a right stereo about 11 years ago which led to an open biopsy which was benign. It was dysplastic. She had a bilateral mammogram on 07-28-24 which was BIRAD 2. She is not complaining of any new lumps masses or nodules of concern in either breast. She had a basal cell cancer removed from her left side of her nose one year ago and recently one removed from her forehead Steven Risk: 5.1% ( met with medical oncology and declined chemoprophylasxis) lifetime risk: 15.9% She has seen a medical oncologist regarding her steven risk and declined chemoprophyaxis. She has had genetic testing and she was told all (-). Caffiene: 8 cups/day nicotine: stopped at 23 chocolate: rare BCP: 6 years Family History: sister: breast cancer 2 brothers: melanoma maternal aunt: breast cancer patient: basal cell cancer 3 brothers: prostate cancer Hormonal history: Menarche: 13 , breast fed: yes, age at : 38 menopause: 55 hormones: premarin cream 5 years, stopped 6 years ago Surgical history: appy right breast biopsy LEEP procedure on cervix basal cell cancer removed from nose Medical History: hypothyroid Social History: nicotine: as above alcohol: weekly drugs: none - Constitutional Constitutional: Denies chills, Denies fever - EENT Eyes: denies blurred vision, denies pain Ears: deny: decreased hearing, tinnitus Ears, nose, mouth and throat: Denies headache, Denies sore throat - Breasts Breasts: bilateral: as per HPI - Cardiovascular Cardiovascular: Denies chest pain, Denies shortness of breath - Respiratory Respiratory: Denies cough - Gastrointestinal Gastrointestinal: Denies abdominal pain, Denies diarrhea, Denies nausea, Denies vomiting - Genitourinary (Female) Genitourinary: Denies dysuria, Denies hematuria - Menstruation Menstruation: Reports postmenopausal - Musculoskeletal Musculoskeletal: Denies myalgias - Integumentary Integumentary: Denies pruritus, Denies rash - Neurological Neurological: Denies numbness, Denies weakness - Psychiatric Psychiatric: Denies anxiety, Denies depression - Endocrine Endocrine: Denies fatigue, Denies weight change - Hematologic/Lymphatic Comment: none - Allergic/Immunologic Allergic/Immunologic: Reports as per HPI Past Medical History Past Medical History: Thyroid Disorder Additional Past Medical History / Comment(s): HYPOTHYROID 2020. History of osteopenia. Past [employer] history: HPV at age 20. She was treated for cervical dysplasia with a LEEP procedure 2002. History of Any Multi-Drug Resistant Organisms: None Reported Past Surgical History: Ablation, Appendectomy, Breast Surgery Additional Past Surgical History / Comment(s): LEEP procedure of the cervix 2002. Breast lump removed which was benign. Colonoscopy 2019(next after 10yr). Past Anesthesia/Blood Transfusion Reactions: Motion Sickness, Postoperative Nausea & Vomiting (PONV) Past Psychological History: No Psychological Hx Reported Smoking Status: Former smoker Past Alcohol Use History: Occasional Additional Past Alcohol Use History / Comment(s): Quit smoking at age 23. Past Drug Use History: None Reported - Past Family History Father Family Medical History: CVA/TIA Additional Family Medical History / Comment(s): . Mother Family Medical History: No Reported History Sister(s) Additional Family Medical History / Comment(s): Some form of breast dysplasia. Brother(s) Family Medical History: Cancer Additional Family Medical History / Comment(s): Melanoma Medications and Allergies Home Medications Medication Instructions Recorded Confirmed Type Cyanocobalamin (Vitamin B-12) 1,000 mcg PO DAILY 04/25/22 06/22/22 History [Vitamin B-12] Folic Acid 800 mcg PO DAILY 04/25/22 06/22/22 History Levothyroxine Sodium 25 mcg PO DAILY 04/25/22 06/22/22 History Calcium Carbonate/Vitamin D3 1 tab PO DAILY 05/25/22 06/22/22 History [Calcium 500 mg Chewable Tablet] Cholecalciferol (Vitamin D3) 125 mcg PO DAILY 05/25/22 06/22/22 History [Vitamin D3 (125 MCG = 5,000 IU)] Allergies Allergy/AdvReac Type Severity Reaction Status Date / Time acetaminophen [From [place]] AdvReac Nausea & Unverified 06/22/22 16:07 Vomiting hydrocodone [From [place]] AdvReac Nausea & Unverified 06/22/22 16:07 Vomiting Objective - Vital Signs Vital signs: Intake & Output 07/30/24 07/31/24 07/31/24 18:59 06:59 18:59 Weight 51.71 kg - Constitutional General appearance: Present: cooperative - EENT Eyes: Present: EOMI ENT: Present: hearing grossly normal - Neck Neck: Present: normal ROM - Respiratory Respiratory: bilateral: CTA - Cardiovascular Rhythm: regular Heart sounds: normal: S1, S2 - Integumentary Integumentary: Present: normal turgor - Musculoskeletal Musculoskeletal: Present: gait normal - Psychiatric Psychiatric: Present: A&O x's 3, appropriate affect, intact judgment & insight - Additional findings Additional findings: Breast Exam: BRA: 34A inspection: bilateral grade 2 ptosis Palpation: Right breast: Multiple positional exam fibrocystic changes no dominant masses or nodules of concern Right axilla shoddy adenopathy non-worrisome Left breast: Multi-positional exam no dominant masses or notches of concern, ecchymosis related to recent stereo biopsy Left axilla: No adenopathy of concern Assessment and Plan Assessment: Impression: Fibrocystic breast changes Stereotactic core biopsy left breast benign concordant 2022 Breast bilateral mammogram 07-28-24 benign BI-RADS 2 Patient has seen medical oncologist for high Steven risk score and at this time declined chemoprophylaxis Plan: Bilateral mammogram 1 year with examination at that time Patient to follow-up sooner any questions or concerns continue to follow with dermatology CC: Kamila Meyer
== END ==
LOC: WWCWWP 09:05
PROVIDERS: ATTEND Surgery
DX: Z12.31 Encounter for screening mammogram for malignant neoplasm of breast (principal); N60.11 Diffuse cystic mastopathy of right breast; N60.12 Diffuse cystic mastopathy of left breast; Z87.891 Personal history of nicotine dependence; Z88.5 Allergy status to narcotic agent; Z88.6 Allergy status to analgesic agent